=== PATIENT | female | born 1950 | race Caucasian/White ===

== ENCOUNTER 2018-09-17 00:59 | Inpatient (IN) ==
[2018-09-17] MEDS ORDERED: CEFEPIME 2,000 MG in SODIUM CHLORIDE 0.9% 100 ML IV STA (01:30)
[2018-09-17 01:31] LABS: Basophils % 0.2 % (0.0-0.8); Eosinophils % 0.1 % (0.00-10.9); Hematocrit 31.3 VOL% (35.7-47.0); Hemoglobin 9.9 GM/DL (12.0-16.0); Immature Granulocytes % 0.6 %; Immature Granulocytes Absolute 0.07 #; Lymphocytes # 1.2 10*3/uL (1.4-4.0); Lymphocytes % 10.9 % (21.3-54.2); Mean Corpuscular HGB Conc 31.6 GM/DL (32-36); Mean Corpuscular Hemoglobin 30 PG (27-34); Mean Corpuscular Volume 93.2 FL (87-102); Mean Platelet Volume 10.1 FL (9.6-12.0); Monocytes # 0.6 10*3/uL (0.11-0.8); Monocytes % 5.6 % (1.7-12.7); Neutrophils # 9.4 10*3/uL (1.4-7.4); Neutrophils % 82.6 % (38.7-73.9); Platelet Count 204 T/CUMM (130-400); Red Blood Count 3.36 MC/CUMM (3.8-5.5); Red Cell Distribution Width 14.5 % (9.3-17.3); White Blood Count 11.4 T/CUMM (4-12)
[2018-09-17] MEDS ORDERED: VANCOMYCIN INJ 1,000 MG in SODIUM CHLORIDE 0.9% 250 ML IV STA (01:32)
[2018-09-17 01:33] LABS: PT Patient Result 10.6 SECS; Partial Thromboplastin Time 27.3 SECS (0-40)
[2018-09-17 01:49] LABS: Albumin 2.9 G/DL (3.4-5.0); Bilirubin,Total 0.8 MG/DL (0.2-1.0); Calcium 8.4 MG/DL (8.5-10.1); Potassium 3.8 MMOL/L (3.5-5.1); Total Protein 6.3 G/DL (6.4-8.3)
[2018-09-17 01:51] LABS: Lactic Acid 0.9 MMOL/L (0.4-2.0)
[2018-09-17] MEDS ORDERED: ALBUTEROL 2.5 MG/3 ML NEB RESP TX PRN (02:01)
[2018-09-17] MEDS ORDERED: DEXTROSE 50% 25 GM/50 ML VIAL IV PRN ×2 (02:01→11:42)
[2018-09-17] MEDS ORDERED: GLUCAGON 1 MG VIAL IM PRN ×2 (02:01→11:42)
[2018-09-17 02:04] LABS: CKMB % 14.5 %
[2018-09-17 02:05] LABS: Troponin I 5.56 NG/ML (0.00-0.045)
[2018-09-17] MEDS ORDERED: ENOXAPARIN 120 MG/0.8 ML SYRINGE SUBCUT SCH ×2 (03:00→08:30)
[2018-09-17 03:37] LABS: Apearance,Urine CLOUDY (Clear); Bacteria,Urine Occasional /HPF (Few); Bilirubin,Urine Negative (Negative); Blood, Urine Small mg/dL (Negative); Glucose,Urine (UA) Negative (Negative); Hyaline Casts,Urine 10 /LPF (0-3); Ketones,Urine Negative (Negative); Nitrite,Urine Negative (Negative); Protein,Urine Negative; RBC,Urine 1 /HPF (0-4); Squamous Epithelial Cell,Urine Occasional /HPF (0-10); Urine Color Yellow (Yellow); Urine Specific Gravity 1.009 (1.001-1.035); WBC,Urine 6 /HPF (0-6)
[2018-09-17] MEDS: methylPREDNISolone SOD SUC 40 MG/1 ML VIAL IV SCH ×3 (03:46→18:25)
[2018-09-17] MEDS: NITROGLYCERIN 2% OINT 1 INCH/GM PACK TOP SCH ×3 (05:41→18:25)
[2018-09-17] MEDS: ALBUTEROL/IPRATROPIUM 3 ML NEB RESP TX SCH ×3 (07:32→19:11)
[2018-09-17] MEDS ORDERED: NITROGLYCERIN SL 0.4 MG TABLET SL ONE (07:55)
[2018-09-17] MEDS ORDERED: LEVOFLOXACIN INJ 500 MG in PREMIX 1 EACH IV ONE (08:00)
[2018-09-17] MEDS ORDERED: MORPHINE 4 MG/1 ML VIAL ONE (08:14)
[2018-09-17] MEDS ORDERED: MORPHINE 4 MG/1 ML VIAL IV ONE (08:15)
[2018-09-17] MEDS ORDERED: ASPIRIN EC 325 MG TABLET PO SCH (08:30)
[2018-09-17] MEDS ORDERED: POTASSIUM CHLORIDE RIDER 10 MEQ in PREMIX 1 EACH IV PRN (08:32)
[2018-09-17] MEDS ORDERED: diphenhydrAMINE CAP 25 MG CAPSULE PO ONE (08:32)
[2018-09-17] MEDS ORDERED: MAGNESIUM SULF RIDER 2 GM in PREMIX 1 EACH IV PRN (08:32)
[2018-09-17] MEDS ORDERED: DIAZEPAM 5 MG TABLET PO ONE (08:32)
[2018-09-17] MEDS: INSULIN REGULAR 100 UNIT/ML SUBCUT SCH ×4 (08:40→20:58)
[2018-09-17] MEDS ORDERED: SODIUM CHLORIDE 0.9% 1,000 ML IV SCH (09:00)
[2018-09-17] MEDS ORDERED: MIDAZOLAM 2 MG/2 ML VIAL ONE (09:06)
[2018-09-17] MEDS ORDERED: fentaNYL 100 MCG/2 ML VIAL ONE (09:06)
[2018-09-17] MEDS ORDERED: HEPARIN 5,000 UNIT/1 ML VIAL ONE (09:06)
[2018-09-17] MEDS ORDERED: TIROFIBAN 5,000 MCG/100 ML PREMIX IV ONE (09:46)
[2018-09-17] MEDS ORDERED: ASPIRIN EC 325 MG TABLET PO ONE (09:57)
[2018-09-17] MEDS ORDERED: CLOPIDOGREL 300 MG TABLET ONE (10:28)
[2018-09-17] MEDS: TIROFIBAN 5,000 MCG/100 ML PREMIX IV SCH ×2 (11:24→13:16)
[2018-09-17] MEDS: FLUTICASONE/SALMETEROL 500-50 DISKUS 14 DOSE INH SCH ×2 (11:30→20:34)
[2018-09-17] MEDS: AMIODARONE 200 MG TABLET PO SCH (11:31)
[2018-09-17] MEDS: ATORVASTATIN 40 MG TABLET PO SCH (11:31)
[2018-09-17] MEDS: CLOPIDOGREL 75 MG TABLET PO SCH (11:31)
[2018-09-17] MEDS: amLODIPine 5 MG TABLET PO SCH (11:32)
[2018-09-17] MEDS: PANTOPRAZOLE 40 MG TABLET PO SCH (11:32)
[2018-09-17] MEDS: FUROSEMIDE 40 MG TABLET PO SCH ×2 (11:32→20:29)
[2018-09-17] MEDS: LOSARTAN 50 MG TABLET PO SCH (11:32)
[2018-09-17] MEDS: SODIUM CHLORIDE 0.9% 1,000 ML IV SCH ×2 (11:33→20:32)
[2018-09-17] MEDS: traMADol 50 MG TABLET PO PRN ×2 (11:47→21:04)
[2018-09-17 12:29] LABS: CKMB % 18.6 %
[2018-09-17 12:34] LABS: Troponin I 20.9 NG/ML (0.00-0.045)
[2018-09-17] MEDS: GABAPENTIN 300 MG CAPSULE PO SCH ×2 (13:14→20:31)
[2018-09-17] MEDS ORDERED: NITROGLYCERIN SL 0.4 MG TABLET SL PRN (16:22)
[2018-09-17] MEDS ORDERED: HYOSCYAMINE 0.125 MG TABLET PO PRN (16:22)
[2018-09-17 19:45] LABS: CKMB % 19.8 %
[2018-09-17 19:47] LABS: Troponin I 12.3 NG/ML (0.00-0.045)
[2018-09-17] MEDS: traZODone 50 MG TABLET PO SCH (20:30)
[2018-09-17] MEDS ORDERED: GABAPENTIN 100 MG CAPSULE PO SCH (21:00)
[2018-09-18] MEDS: NITROGLYCERIN 2% OINT 1 INCH/GM PACK TOP SCH ×4 (00:02→17:18)
[2018-09-18] MEDS: ALBUTEROL/IPRATROPIUM 3 ML NEB RESP TX SCH ×4 (00:25→20:21)
[2018-09-18] MEDS: methylPREDNISolone SOD SUC 40 MG/1 ML VIAL IV SCH ×2 (03:07→13:20)
[2018-09-18] MEDS: traMADol 50 MG TABLET PO PRN ×2 (03:08→20:49)
[2018-09-18] MEDS: LEVOTHYROXINE 150 MCG TABLET PO SCH (06:03)
[2018-09-18 06:11] LABS: Basophils % 0.1 % (0.0-0.8); Hematocrit 27.7 VOL% (35.7-47.0); Hemoglobin 8.7 GM/DL (12.0-16.0); Immature Granulocytes % 0.5 %; Immature Granulocytes Absolute 0.05 #; Lymphocytes # 1.9 10*3/uL (1.4-4.0); Lymphocytes % 17.6 % (21.3-54.2); Mean Corpuscular HGB Conc 31.4 GM/DL (32-36); Mean Corpuscular Hemoglobin 29 PG (27-34); Mean Corpuscular Volume 93.3 FL (87-102); Mean Platelet Volume 10.5 FL (9.6-12.0); Monocytes # 0.3 10*3/uL (0.11-0.8); Monocytes % 2.8 % (1.7-12.7); Neutrophils # 8.5 10*3/uL (1.4-7.4); Platelet Count 224 T/CUMM (130-400); Red Blood Count 2.97 MC/CUMM (3.8-5.5); Red Cell Distribution Width 14.5 % (9.3-17.3); White Blood Count 10.8 T/CUMM (4-12)
[2018-09-18 06:34] LABS: Albumin 2.7 G/DL (3.4-5.0); Bilirubin,Total 0.8 MG/DL (0.2-1.0); Calcium 8.6 MG/DL (8.5-10.1); Osmolality,Calculated 296.7 MOS/KG (273-304); Potassium 4.5 MMOL/L (3.5-5.1); Total Protein 6.3 G/DL (6.4-8.3)
[2018-09-18 06:38] LABS: CKMB % 22.6 %; Troponin I 10.2 NG/ML (0.00-0.045)
[2018-09-18] MEDS: GABAPENTIN 300 MG CAPSULE PO SCH (09:05)
[2018-09-18] MEDS: INSULIN REGULAR 100 UNIT/ML SUBCUT SCH ×4 (09:05→20:51)
[2018-09-18] MEDS: CLOPIDOGREL 75 MG TABLET PO SCH (09:05)
[2018-09-18] MEDS: FUROSEMIDE 40 MG TABLET PO SCH (09:05)
[2018-09-18] MEDS: AMIODARONE 200 MG TABLET PO SCH (09:06)
[2018-09-18] MEDS: amLODIPine 5 MG TABLET PO SCH (09:06)
[2018-09-18] MEDS: SOLIFENACIN 5 MG TABLET PO SCH (09:06)
[2018-09-18] MEDS: ATORVASTATIN 40 MG TABLET PO SCH (09:06)
[2018-09-18] MEDS: PANTOPRAZOLE 40 MG TABLET PO SCH (09:06)
[2018-09-18] MEDS: LOSARTAN 50 MG TABLET PO SCH (09:06)
[2018-09-18] MEDS: ASPIRIN EC 81 MG TABLET PO SCH (09:07)
[2018-09-18] MEDS: FLUTICASONE/SALMETEROL 500-50 DISKUS 14 DOSE INH SCH ×2 (09:07→20:47)
[2018-09-18] MEDS: LEVOFLOXACIN INJ 250 MG in PREMIX 1 EACH IV SCH (09:10)
[2018-09-18] MEDS: PSYLLIUM POWDER 3.7 GM/PACK PO SCH (10:12)
[2018-09-18] MEDS: POLYETHYLENE GLYCOL POWDER 17 GM PACK PO SCH ×2 (10:12→20:50)
[2018-09-18] MEDS ORDERED: FUROSEMIDE 40 MG/4 ML VIAL IV ONE (15:40)
[2018-09-18] MEDS ORDERED: FUROSEMIDE 40 MG/4 ML VIAL IV SCH (16:00)
[2018-09-18] MEDS: DOCUSATE SODIUM 100 MG CAPSULE PO SCH (20:48)
[2018-09-18] MEDS: LACTULOSE 20 GM/30 ML UDCUP PO SCH (20:48)
[2018-09-18] MEDS: LUBIPROSTONE 24 MCG CAPSULE PO SCH (20:48)
[2018-09-18] MEDS: traZODone 50 MG TABLET PO SCH (20:49)
[2018-09-18] MEDS: FUROSEMIDE 40 MG/4 ML VIAL IV SCH (20:50)
[2018-09-18] MEDS: SENNA 8.6 MG TABLET PO SCH (20:52)
[2018-09-19] MEDS: NITROGLYCERIN 2% OINT 1 INCH/GM PACK TOP SCH ×3 (00:22→13:06)
[2018-09-19] MEDS: ALBUTEROL/IPRATROPIUM 3 ML NEB RESP TX SCH ×4 (01:00→19:37)
[2018-09-19 05:56] LABS: Basophils % 0.1 % (0.0-0.8); Hematocrit 27.2 VOL% (35.7-47.0); Hemoglobin 8.3 GM/DL (12.0-16.0); Immature Granulocytes Absolute 0.13 #; Lymphocytes # 2.3 10*3/uL (1.4-4.0); Lymphocytes % 17.7 % (21.3-54.2); Mean Corpuscular HGB Conc 30.5 GM/DL (32-36); Mean Corpuscular Hemoglobin 28 PG (27-34); Mean Corpuscular Volume 93.2 FL (87-102); Mean Platelet Volume 10.4 FL (9.6-12.0); Monocytes # 0.4 10*3/uL (0.11-0.8); Monocytes % 3.4 % (1.7-12.7); Neutrophils # 10.2 10*3/uL (1.4-7.4); Neutrophils % 77.8 % (38.7-73.9); Platelet Count 245 T/CUMM (130-400); Red Blood Count 2.92 MC/CUMM (3.8-5.5); Red Cell Distribution Width 14.5 % (9.3-17.3); White Blood Count 13.1 T/CUMM (4-12)
[2018-09-19] MEDS: LEVOTHYROXINE 150 MCG TABLET PO SCH (06:08)
[2018-09-19 06:28] LABS: % Iron Saturation 7.7 % (18-50); Ferritin 159.6 ng/ml (8-252)
[2018-09-19 06:34] LABS: Folate 16.7 NG/ML (5.4-24.0); Vitamin B12 475 PG/ML (211-911)
[2018-09-19 07:08] LABS: Sedimentation Rate-Westergren 101 MM/HR (0-30)
[2018-09-19 07:18] LABS: Free T4 (Free Thyroxine) 1.15 NG/DL (0.76-1.46); Thyroid Stimulating Hormone 0.029 uIU/ml (0.358-3.74)
[2018-09-19] MEDS: POLYETHYLENE GLYCOL POWDER 17 GM PACK PO SCH ×3 (08:16→21:08)
[2018-09-19] MEDS ORDERED: predniSONE 20 MG TABLET PO SCH (09:00)
[2018-09-19] MEDS: LACTULOSE 20 GM/30 ML UDCUP PO SCH ×3 (09:08→21:09)
[2018-09-19] MEDS: INSULIN REGULAR 100 UNIT/ML SUBCUT SCH ×4 (09:08→21:09)
[2018-09-19] MEDS: PSYLLIUM POWDER 3.7 GM/PACK PO SCH (09:09)
[2018-09-19] MEDS: amLODIPine 5 MG TABLET PO SCH (09:10)
[2018-09-19] MEDS: FUROSEMIDE 40 MG/4 ML VIAL IV SCH (09:10)
[2018-09-19] MEDS: ATORVASTATIN 40 MG TABLET PO SCH (09:11)
[2018-09-19] MEDS: PANTOPRAZOLE 40 MG TABLET PO SCH (09:11)
[2018-09-19] MEDS: LUBIPROSTONE 24 MCG CAPSULE PO SCH ×2 (09:11→21:09)
[2018-09-19] MEDS: SOLIFENACIN 5 MG TABLET PO SCH (09:11)
[2018-09-19] MEDS: CLOPIDOGREL 75 MG TABLET PO SCH (09:11)
[2018-09-19] MEDS: DOCUSATE SODIUM 100 MG CAPSULE PO SCH ×2 (09:11→21:09)
[2018-09-19] MEDS: ASPIRIN EC 81 MG TABLET PO SCH (09:11)
[2018-09-19] MEDS: FLUTICASONE/SALMETEROL 500-50 DISKUS 14 DOSE INH SCH ×2 (09:11→21:16)
[2018-09-19] MEDS: AMIODARONE 200 MG TABLET PO SCH (09:11)
[2018-09-19] MEDS: LEVOFLOXACIN INJ 250 MG in PREMIX 1 EACH IV SCH (09:12)
[2018-09-19] MEDS ORDERED: IRON SUCROSE 200 MG in SODIUM CHLORIDE 0.9% 100 ML IV ONE (11:00)
[2018-09-19 11:47] LABS: Calcium 8.5 MG/DL (8.5-10.1); Osmolality,Calculated 297.1 MOS/KG (273-304); Potassium 4.2 MMOL/L (3.5-5.1)
[2018-09-19] MEDS ORDERED: MEROPENEM 500 MG in SYRINGE 1 EACH IV SCH (12:30)
[2018-09-19] MEDS: ENOXAPARIN 30 MG/0.3 ML SYRINGE SUBCUT SCH (13:07)
[2018-09-19] MEDS: BUDESONIDE 0.5 MG/2 ML NEB RESP TX SCH ×2 (13:38→19:37)
[2018-09-19] MEDS ORDERED: MAGNESIUM CITRATE 300 ML BOTTLE PO ONE (15:30)
[2018-09-19] MEDS ORDERED: SODIUM CHLORIDE 0.9% 1,000 ML IV SCH (15:30)
[2018-09-19] MEDS ORDERED: MINERAL OIL 30 ML UDCUP PO ONE (15:32)
[2018-09-19] MEDS: traZODone 50 MG TABLET PO SCH (21:09)
[2018-09-19] MEDS: SENNA 8.6 MG TABLET PO SCH (21:09)
[2018-09-19] MEDS: MONTELUKAST 10 MG TABLET PO SCH (21:18)
[2018-09-20] MEDS: ALBUTEROL/IPRATROPIUM 3 ML NEB RESP TX SCH ×6 (00:26→18:59)
[2018-09-20] MEDS: MEROPENEM 500 MG in SYRINGE 1 EACH IV SCH ×2 (01:36→14:07)
[2018-09-20 05:28] LABS: Calcium 8.2 MG/DL (8.5-10.1); Osmolality,Calculated 295.4 MOS/KG (273-304); Potassium 4.6 MMOL/L (3.5-5.1)
[2018-09-20] MEDS: LEVOTHYROXINE 150 MCG TABLET PO SCH (06:11)
[2018-09-20] MEDS: BUDESONIDE 0.5 MG/2 ML NEB RESP TX SCH ×2 (06:52→18:59)
[2018-09-20 09:38] LABS: Hemoglobin A1 (Alkaline) 98.3 % (96.5-98.5); Hemoglobin A2 (Alkaline) 1.7 % (1.5-3.5)
[2018-09-20] MEDS: INSULIN REGULAR 100 UNIT/ML SUBCUT SCH ×4 (10:08→22:15)
[2018-09-20] MEDS: FLUTICASONE/SALMETEROL 500-50 DISKUS 14 DOSE INH SCH ×2 (10:09→21:36)
[2018-09-20] MEDS: ASPIRIN EC 81 MG TABLET PO SCH (10:09)
[2018-09-20] MEDS: LUBIPROSTONE 24 MCG CAPSULE PO SCH (10:09)
[2018-09-20] MEDS: LACTULOSE 20 GM/30 ML UDCUP PO SCH ×4 (10:09→21:41)
[2018-09-20] MEDS: PSYLLIUM POWDER 3.7 GM/PACK PO SCH (10:10)
[2018-09-20] MEDS: AMIODARONE 200 MG TABLET PO SCH (10:10)
[2018-09-20] MEDS: ATORVASTATIN 40 MG TABLET PO SCH (10:10)
[2018-09-20] MEDS: DOCUSATE SODIUM 100 MG CAPSULE PO SCH ×2 (10:10→21:38)
[2018-09-20] MEDS: POLYETHYLENE GLYCOL POWDER 17 GM PACK PO SCH ×2 (10:10→21:37)
[2018-09-20] MEDS: PANTOPRAZOLE 40 MG TABLET PO SCH (10:10)
[2018-09-20] MEDS: SOLIFENACIN 5 MG TABLET PO SCH (10:11)
[2018-09-20] MEDS: CLOPIDOGREL 75 MG TABLET PO SCH (10:11)
[2018-09-20] MEDS: methylPREDNISolone SOD SUC 40 MG/1 ML VIAL IV SCH ×2 (10:16→21:39)
[2018-09-20] MEDS: METOCLOPRAMIDE 10 MG/2 ML VIAL IV SCH ×3 (10:25→21:39)
[2018-09-20] MEDS: LEVOFLOXACIN INJ 250 MG in PREMIX 1 EACH IV SCH (11:15)
[2018-09-20] MEDS: ENOXAPARIN 30 MG/0.3 ML SYRINGE SUBCUT SCH (13:19)
[2018-09-20 13:36] LABS: Apearance,Urine Slightly Hazy (Clear); Bilirubin,Urine Negative (Negative); Blood, Urine Negative (Negative); Glucose,Urine (UA) Negative (Negative); Hyaline Casts,Urine 3 /LPF (0-3); Ketones,Urine Negative (Negative); Nitrite,Urine Negative (Negative); Protein,Urine Negative; RBC,Urine 1 /HPF (0-4); Urine Color Yellow (Yellow); Urine Specific Gravity 1.016 (1.001-1.035); Urine Urobilinogen < 2.0 EU/DL (0.2-1.0); WBC,Urine 2 /HPF (0-6)
[2018-09-20] MEDS: SENNA 8.6 MG TABLET PO SCH (21:38)
[2018-09-20] MEDS: MONTELUKAST 10 MG TABLET PO SCH (21:38)
[2018-09-20] MEDS: traZODone 50 MG TABLET PO SCH (22:10)
[2018-09-21] MEDS: ALBUTEROL/IPRATROPIUM 3 ML NEB RESP TX SCH ×7 (00:06→22:58)
[2018-09-21] MEDS: MEROPENEM 500 MG in SYRINGE 1 EACH IV SCH ×2 (01:30→14:30)
[2018-09-21] MEDS: LACTULOSE 20 GM/30 ML UDCUP PO SCH ×6 (02:00→22:01)
[2018-09-21] MEDS: METOCLOPRAMIDE 10 MG/2 ML VIAL IV SCH ×4 (05:00→21:58)
[2018-09-21 05:28] LABS: Calcium 8.3 MG/DL (8.5-10.1); Osmolality,Calculated 294.9 MOS/KG (273-304); Potassium 5.1 MMOL/L (3.5-5.1)
[2018-09-21] MEDS: LEVOTHYROXINE 150 MCG TABLET PO SCH (06:10)
[2018-09-21] MEDS: BUDESONIDE 0.5 MG/2 ML NEB RESP TX SCH ×2 (07:24→19:03)
[2018-09-21] MEDS: INSULIN REGULAR 100 UNIT/ML SUBCUT SCH ×3 (08:44→16:05)
[2018-09-21] MEDS: methylPREDNISolone SOD SUC 40 MG/1 ML VIAL IV SCH ×2 (08:45→22:03)
[2018-09-21] MEDS: FLUTICASONE/SALMETEROL 500-50 DISKUS 14 DOSE INH SCH ×2 (08:46→22:03)
[2018-09-21] MEDS: LINACLOTIDE 145 MCG CAPSULE PO SCH (08:46)
[2018-09-21] MEDS: CLOPIDOGREL 75 MG TABLET PO SCH (08:46)
[2018-09-21] MEDS: PANTOPRAZOLE 40 MG TABLET PO SCH (08:46)
[2018-09-21] MEDS: DOCUSATE SODIUM 100 MG CAPSULE PO SCH ×2 (08:46→22:02)
[2018-09-21] MEDS: SOLIFENACIN 5 MG TABLET PO SCH (08:47)
[2018-09-21] MEDS: ASPIRIN EC 81 MG TABLET PO SCH (08:47)
[2018-09-21] MEDS: ATORVASTATIN 40 MG TABLET PO SCH (08:47)
[2018-09-21] MEDS: AMIODARONE 200 MG TABLET PO SCH (08:47)
[2018-09-21] MEDS: POLYETHYLENE GLYCOL POWDER 17 GM PACK PO SCH ×2 (08:48→22:01)
[2018-09-21] MEDS: PSYLLIUM POWDER 3.7 GM/PACK PO SCH (08:48)
[2018-09-21] MEDS ORDERED: SODIUM CHLORIDE 0.9% 100 ML IV ONE (15:08)
[2018-09-21] MEDS: ENOXAPARIN 30 MG/0.3 ML SYRINGE SUBCUT SCH (15:10)
[2018-09-21] MEDS: INSULIN NPH/REGULAR 70/30 100 UNIT/ML SUBCUT SCH (16:04)
[2018-09-21] MEDS: miSOPROStol 200 MCG TABLET PO SCH ×2 (17:20→22:02)
[2018-09-21] MEDS: ONDANSETRON 4 MG/2 ML VIAL IV PRN (18:14)
[2018-09-21] MEDS: SENNA 8.6 MG TABLET PO SCH (22:02)
[2018-09-21] MEDS: MONTELUKAST 10 MG TABLET PO SCH (22:02)
[2018-09-21] MEDS: traZODone 50 MG TABLET PO SCH (22:02)
[2018-09-22] MEDS: MEROPENEM 500 MG in SYRINGE 1 EACH IV SCH ×2 (01:00→16:31)
[2018-09-22] MEDS: ALBUTEROL/IPRATROPIUM 3 ML NEB RESP TX SCH ×6 (02:50→23:40)
[2018-09-22] MEDS: INSULIN REGULAR 100 UNIT/ML SUBCUT SCH ×5 (02:53→21:30)
[2018-09-22] MEDS: METOCLOPRAMIDE 10 MG/2 ML VIAL IV SCH ×2 (04:57→21:31)
[2018-09-22] MEDS: LACTULOSE 20 GM/30 ML UDCUP PO SCH ×6 (04:58→21:31)
[2018-09-22 05:42] LABS: Calcium 8.7 MG/DL (8.5-10.1); Osmolality,Calculated 291.1 MOS/KG (273-304); Potassium 5.7 MMOL/L (3.5-5.1)
[2018-09-22] MEDS ORDERED: INSULIN NPH/REGULAR 70/30 100 UNIT/ML SUBCUT SCH (07:30)
[2018-09-22] MEDS: LEVOTHYROXINE 150 MCG TABLET PO SCH (07:40)
[2018-09-22] MEDS ORDERED: FUROSEMIDE INJ 160 MG in SODIUM CHLORIDE 0.9% 50 ML IV ONE (07:55)
[2018-09-22] MEDS: BUDESONIDE 0.5 MG/2 ML NEB RESP TX SCH ×2 (08:10→18:00)
[2018-09-22 08:47] LABS: ABG Base Excess -5.2 MMOL/L (-2.5-2.5); ABG HCO3 19.9 MMOL/L (20-26); ABG Oxygen Saturation 83.3 % (95-100); ABG PCO2 49.5 MM HG (35-48); ABG PH 7.258 (7.35-7.45); ABG PO2 55.8 MM HG (80-95); ABG TCO2 20.6 MMOL/L (23-27)
[2018-09-22] MEDS ORDERED: DOBUTamine 500 MG/250 ML PREMIX IV SCH (10:01)
[2018-09-22 10:26] LABS: Basophils % 0.1 % (0.0-0.8); Hematocrit 32.2 VOL% (35.7-47.0); Hemoglobin 9.6 GM/DL (12.0-16.0); Immature Granulocytes % 3.3 %; Immature Granulocytes Absolute 1.23 #; Lymphocytes # 10.7 10*3/uL (1.4-4.0); Lymphocytes % 28.6 % (21.3-54.2); Mean Corpuscular HGB Conc 29.8 GM/DL (32-36); Mean Corpuscular Hemoglobin 28 PG (27-34); Mean Corpuscular Volume 93.3 FL (87-102); Mean Platelet Volume 10.3 FL (9.6-12.0); Monocytes # 1.2 10*3/uL (0.11-0.8); Monocytes % 3.3 % (1.7-12.7); Neutrophils # 24.2 10*3/uL (1.4-7.4); Neutrophils % 64.7 % (38.7-73.9); Platelet Count 306 T/CUMM (130-400); Red Blood Count 3.45 MC/CUMM (3.8-5.5); Red Cell Distribution Width 14.6 % (9.3-17.3); White Blood Count 37.5 T/CUMM (4-12)
[2018-09-22 10:45] LABS: Hypochromasia 1+; Lymphocytes 29 % (20-55); Ovalocytes Slight; Platelet Estimate Adequate; Segmented Neutrophils 70 % (50-85); Total Cells Counted 100
[2018-09-22] MEDS ORDERED: LEVOFLOXACIN INJ 250 MG in PREMIX 1 EACH IV SCH (11:00)
[2018-09-22] MEDS: LINACLOTIDE 145 MCG CAPSULE PO SCH (13:33)
[2018-09-22] MEDS: ASPIRIN EC 81 MG TABLET PO SCH (13:34)
[2018-09-22] MEDS: miSOPROStol 200 MCG TABLET PO SCH ×3 (13:34→23:05)
[2018-09-22] MEDS: AMIODARONE 200 MG TABLET PO SCH (13:35)
[2018-09-22] MEDS: DOCUSATE SODIUM 100 MG CAPSULE PO SCH ×2 (13:35→21:30)
[2018-09-22] MEDS: ATORVASTATIN 40 MG TABLET PO SCH (13:35)
[2018-09-22] MEDS: ENOXAPARIN 30 MG/0.3 ML SYRINGE SUBCUT SCH (14:31)
[2018-09-22 14:59] LABS: Hepatitis A Ab IgM Quant 0.03 Index; Hepatitis A Ab IgM Result Negative (Negative); Hepatitis B Core IgM Quant 0.14 Index; Hepatitis B Core IgM Result Negative (Negative); Hepatitis B Surface Ag Quant < 0.10 Index; Hepatitis B Surface Ag Result Negative (Negative); Hepatitis C Virus Ab Result Negative (Negative)
[2018-09-22 15:28] LABS: Apearance,Urine CLOUDY (Clear); Bacteria,Urine Occasional /HPF (Few); Bilirubin,Urine Negative (Negative); Blood, Urine Small mg/dL (Negative); Calcium Oxalate Crystals,Urine Occasional /HPF (Few); Glucose,Urine (UA) 50 mg/dL (Negative); Hyaline Casts,Urine 3 /LPF (0-3); Ketones,Urine 5 mg/dL (Negative); Mucus,Urine Occasional /LPF (Occasional); Nitrite,Urine Negative (Negative); Protein,Urine 30 MG/DL; RBC,Urine 4 /HPF (0-4); Squamous Epithelial Cell,Urine Occasional /HPF (0-10); Urine Color Yellow (Yellow); Urine Urobilinogen < 2.0 EU/DL (0.2-1.0); WBC,Urine 14 /HPF (0-6)
[2018-09-22] MEDS: PANTOPRAZOLE 40 MG VIAL IV SCH (16:31)
[2018-09-22] MEDS: INSULIN NPH/REGULAR 70/30 100 UNIT/ML SUBCUT SCH (16:38)
[2018-09-22] MEDS: ONDANSETRON 4 MG/2 ML VIAL IV PRN ×2 (16:54→21:05)
[2018-09-22] MEDS ORDERED: PROMETHAZINE INJ 12.5 MG in SODIUM CHLORIDE 0.9% 50 ML IV PRN (18:20)
[2018-09-22] MEDS: FLUTICASONE/SALMETEROL 500-50 DISKUS 14 DOSE INH SCH ×2 (18:44→21:30)
[2018-09-22] MEDS: CLOPIDOGREL 75 MG TABLET PO SCH (18:44)
[2018-09-22] MEDS: MONTELUKAST 10 MG TABLET PO SCH (21:30)
[2018-09-23] MEDS: MEROPENEM 500 MG in SYRINGE 1 EACH IV SCH ×2 (01:20→13:16)
[2018-09-23] MEDS: LACTULOSE 20 GM/30 ML UDCUP PO SCH ×6 (03:00→21:34)
[2018-09-23] MEDS: ALBUTEROL/IPRATROPIUM 3 ML NEB RESP TX SCH ×6 (03:15→23:20)
[2018-09-23 04:23] LABS: ABG Base Excess 1.4 MMOL/L (-2.5-2.5); ABG HCO3 25.6 MMOL/L (20-26); ABG Oxygen Saturation 96.3 % (95-100); ABG PCO2 41.2 MM HG (35-48); ABG PH 7.411 (7.35-7.45); ABG PO2 85.6 MM HG (80-95); ABG TCO2 23.3 MMOL/L (23-27); Allen Test Positive; Pt O2 Delivery Device BIPAP
[2018-09-23] MEDS: ONDANSETRON 4 MG/2 ML VIAL IV PRN ×3 (04:39→13:42)
[2018-09-23 05:03] LABS: Basophils # 0.1 10*3/uL (0.0-0.2); Basophils % 0.2 % (0.0-0.8); Hematocrit 28.8 VOL% (35.7-47.0); Immature Granulocytes Absolute 0.35 #; Lymphocytes # 3.9 10*3/uL (1.4-4.0); Mean Corpuscular HGB Conc 31.3 GM/DL (32-36); Mean Corpuscular Hemoglobin 28 PG (27-34); Mean Corpuscular Volume 90.9 FL (87-102); Mean Platelet Volume 10.6 FL (9.6-12.0); Monocytes # 0.6 10*3/uL (0.11-0.8); Monocytes % 1.7 % (1.7-12.7); NRBC # 0.02 10*3/uL; Neutrophils # 30.5 10*3/uL (1.4-7.4); Neutrophils % 86.1 % (38.7-73.9); Platelet Count 269 T/CUMM (130-400); Red Blood Count 3.17 MC/CUMM (3.8-5.5); Red Cell Distribution Width 14.6 % (9.3-17.3); White Blood Count 35.3 T/CUMM (4-12)
[2018-09-23 05:40] LABS: Calcium 8.5 MG/DL (8.5-10.1); Osmolality,Calculated 292.1 MOS/KG (273-304); Potassium 4.7 MMOL/L (3.5-5.1)
[2018-09-23 05:52] LABS: Albumin 2.4 G/DL (3.4-5.0); Calcium 8.8 MG/DL (8.5-10.1); Osmolality,Calculated 292.1 MOS/KG (273-304); Potassium 4.7 MMOL/L (3.5-5.1)
[2018-09-23] MEDS: METOCLOPRAMIDE 10 MG/2 ML VIAL IV SCH ×3 (06:20→21:25)
[2018-09-23] MEDS: LEVOTHYROXINE 100 MCG TABLET PO SCH (06:33)
[2018-09-23 07:03] LABS: Band Neutrophils 2 % (0-10); Lymphocytes 15 % (20-55); Segmented Neutrophils 83 % (50-85); Total Cells Counted 100
[2018-09-23 07:04] LABS: Acanthocytes Few; Hypochromasia 1+; Microcytosis Slight; Ovalocytes Few
[2018-09-23] MEDS: BUDESONIDE 0.5 MG/2 ML NEB RESP TX SCH ×2 (07:18→19:07)
[2018-09-23] MEDS: INSULIN NPH/REGULAR 70/30 100 UNIT/ML SUBCUT SCH ×2 (08:59→17:21)
[2018-09-23] MEDS: LINACLOTIDE 145 MCG CAPSULE PO SCH (09:00)
[2018-09-23] MEDS: INSULIN REGULAR 100 UNIT/ML SUBCUT SCH ×4 (09:00→21:11)
[2018-09-23] MEDS: miSOPROStol 200 MCG TABLET PO SCH ×4 (13:02→21:33)
[2018-09-23] MEDS: PANTOPRAZOLE 40 MG VIAL IV SCH (13:17)
[2018-09-23] MEDS: ENOXAPARIN 30 MG/0.3 ML SYRINGE SUBCUT SCH (13:17)
[2018-09-23] MEDS: MORPHINE 4 MG/1 ML VIAL IV PRN ×2 (13:42→20:46)
[2018-09-23] MEDS: DOCUSATE SODIUM 100 MG CAPSULE PO SCH ×2 (13:43→21:33)
[2018-09-23] MEDS: ASPIRIN EC 81 MG TABLET PO SCH (13:43)
[2018-09-23] MEDS: predniSONE 20 MG TABLET PO SCH (13:44)
[2018-09-23] MEDS: AMIODARONE 200 MG TABLET PO SCH (13:44)
[2018-09-23] MEDS: ATORVASTATIN 40 MG TABLET PO SCH (13:44)
[2018-09-23] MEDS: CLOPIDOGREL 75 MG TABLET PO SCH (13:44)
[2018-09-23] MEDS: LORazepam 2 MG/1 ML VIAL IV PRN ×2 (14:38→21:02)
[2018-09-23] MEDS: FLUTICASONE/SALMETEROL 500-50 DISKUS 14 DOSE INH SCH ×2 (15:37→21:48)
[2018-09-23] MEDS: MONTELUKAST 10 MG TABLET PO SCH (21:34)
[2018-09-24] MEDS: MEROPENEM 500 MG in SYRINGE 1 EACH IV SCH ×2 (00:11→12:45)
[2018-09-24] MEDS: LACTULOSE 20 GM/30 ML UDCUP PO SCH ×6 (01:33→21:20)
[2018-09-24] MEDS: ALBUTEROL/IPRATROPIUM 3 ML NEB RESP TX SCH ×6 (03:02→23:11)
[2018-09-24] MEDS: MORPHINE 4 MG/1 ML VIAL IV PRN ×3 (03:16→22:43)
[2018-09-24 04:56] LABS: Basophils # 0.1 10*3/uL (0.0-0.2); Basophils % 0.1 % (0.0-0.8); Hematocrit 27.7 VOL% (35.7-47.0); Hemoglobin 8.6 GM/DL (12.0-16.0); Immature Granulocytes % 1.6 %; Immature Granulocytes Absolute 0.53 #; Lymphocytes # 5.1 10*3/uL (1.4-4.0); Lymphocytes % 15.1 % (21.3-54.2); Mean Corpuscular Hemoglobin 28 PG (27-34); Mean Corpuscular Volume 91.1 FL (87-102); Mean Platelet Volume 10.4 FL (9.6-12.0); Monocytes # 0.3 10*3/uL (0.11-0.8); Monocytes % 0.9 % (1.7-12.7); NRBC # 0.02 10*3/uL; Neutrophils # 27.7 10*3/uL (1.4-7.4); Neutrophils % 82.3 % (38.7-73.9); Platelet Count 224 T/CUMM (130-400); Red Blood Count 3.04 MC/CUMM (3.8-5.5); White Blood Count 33.6 T/CUMM (4-12)
[2018-09-24 05:21] LABS: Calcium 8.8 MG/DL (8.5-10.1); Osmolality,Calculated 311.7 MOS/KG (273-304); Potassium 4.9 MMOL/L (3.5-5.1)
[2018-09-24 05:28] LABS: Lymphocytes 19 % (20-55); Platelet Estimate Normal; Polychromasia Few; Segmented Neutrophils 81 % (50-85); Total Cells Counted 100
[2018-09-24] MEDS: METOCLOPRAMIDE 10 MG/2 ML VIAL IV SCH ×4 (05:42→22:07)
[2018-09-24] MEDS: PANTOPRAZOLE 40 MG TABLET PO SCH (06:42)
[2018-09-24] MEDS: POLYETHYLENE GLYCOL POWDER 17 GM PACK PO SCH (06:42)
[2018-09-24] MEDS: PSYLLIUM POWDER 3.7 GM/PACK PO SCH (06:42)
[2018-09-24] MEDS: methylPREDNISolone SOD SUC 40 MG/1 ML VIAL IV SCH (06:42)
[2018-09-24] MEDS: SOLIFENACIN 5 MG TABLET PO SCH (06:43)
[2018-09-24] MEDS: BUDESONIDE 0.5 MG/2 ML NEB RESP TX SCH ×2 (07:08→18:52)
[2018-09-24] MEDS: LORazepam 2 MG/1 ML VIAL IV PRN ×3 (07:59→15:01)
[2018-09-24] MEDS: LEVOTHYROXINE 100 MCG TABLET PO SCH (08:20)
[2018-09-24] MEDS: INSULIN NPH/REGULAR 70/30 100 UNIT/ML SUBCUT SCH ×2 (08:20→16:25)
[2018-09-24] MEDS ORDERED: ERGOCALCIFEROL 50,000 UNIT CAPSULE PO SCH (09:00)
[2018-09-24] MEDS: ONDANSETRON 4 MG/2 ML VIAL IV PRN (09:27)
[2018-09-24] MEDS: INSULIN REGULAR 100 UNIT/ML SUBCUT SCH ×4 (09:27→21:20)
[2018-09-24] MEDS: ASPIRIN EC 81 MG TABLET PO SCH (09:32)
[2018-09-24] MEDS: LINACLOTIDE 145 MCG CAPSULE PO SCH (09:32)
[2018-09-24] MEDS: miSOPROStol 200 MCG TABLET PO SCH ×4 (09:32→21:20)
[2018-09-24] MEDS: DOCUSATE SODIUM 100 MG CAPSULE PO SCH ×2 (09:33→22:05)
[2018-09-24] MEDS: AMIODARONE 200 MG TABLET PO SCH ×2 (09:33→17:30)
[2018-09-24] MEDS: predniSONE 20 MG TABLET PO SCH ×2 (09:33→17:30)
[2018-09-24] MEDS: CLOPIDOGREL 75 MG TABLET PO SCH (09:33)
[2018-09-24] MEDS: ATORVASTATIN 40 MG TABLET PO SCH ×2 (09:33→17:30)
[2018-09-24] MEDS: FLUTICASONE/SALMETEROL 500-50 DISKUS 14 DOSE INH SCH ×2 (09:35→22:05)
[2018-09-24] MEDS: PANTOPRAZOLE 40 MG VIAL IV SCH (09:47)
[2018-09-24] MEDS: ENOXAPARIN 30 MG/0.3 ML SYRINGE SUBCUT SCH (12:21)
[2018-09-24] MEDS ORDERED: HEPARIN 10,000 UNIT/10 ML VIAL IV SCH (13:00)
[2018-09-24] MEDS ORDERED: CLOPIDOGREL 300 MG TABLET PO ONE (13:24)
[2018-09-24] MEDS ORDERED: ASPIRIN CHEW 81 MG TABLET PO ONE (13:24)
[2018-09-24] MEDS ORDERED: ASPIRIN EC 325 MG TABLET PO ONE (13:58)
[2018-09-24] MEDS: MONTELUKAST 10 MG TABLET PO SCH (21:20)
[2018-09-25] MEDS: ALBUTEROL/IPRATROPIUM 3 ML NEB RESP TX SCH ×6 (02:44→22:37)
[2018-09-25] MEDS: MEROPENEM 500 MG in SYRINGE 1 EACH IV SCH ×2 (02:50→13:47)
[2018-09-25] MEDS: LACTULOSE 20 GM/30 ML UDCUP PO SCH ×6 (04:13→21:53)
[2018-09-25 04:32] LABS: Basophils # 0.1 10*3/uL (0.0-0.2); Basophils % 0.2 % (0.0-0.8); Hematocrit 28.7 VOL% (35.7-47.0); Hemoglobin 8.7 GM/DL (12.0-16.0); Immature Granulocytes % 1.7 %; Lymphocytes # 4.9 10*3/uL (1.4-4.0); Lymphocytes % 16.1 % (21.3-54.2); Mean Corpuscular HGB Conc 30.3 GM/DL (32-36); Mean Corpuscular Hemoglobin 28 PG (27-34); Mean Corpuscular Volume 92.3 FL (87-102); Mean Platelet Volume 10.2 FL (9.6-12.0); Monocytes # 0.3 10*3/uL (0.11-0.8); Neutrophils # 24.4 10*3/uL (1.4-7.4); Platelet Count 148 T/CUMM (130-400); Red Blood Count 3.11 MC/CUMM (3.8-5.5); Red Cell Distribution Width 15.3 % (9.3-17.3); White Blood Count 30.1 T/CUMM (4-12)
[2018-09-25 04:52] LABS: Calcium 8.7 MG/DL (8.5-10.1); Osmolality,Calculated 305.7 MOS/KG (273-304); Potassium 4.8 MMOL/L (3.5-5.1)
[2018-09-25 05:24] LABS: Microcytosis Slight; Ovalocytes Few
[2018-09-25 05:25] LABS: Hypochromasia 1+; Platelet Estimate Adequate
[2018-09-25] MEDS: METOCLOPRAMIDE 10 MG/2 ML VIAL IV SCH ×3 (06:23→21:53)
[2018-09-25] MEDS: LEVOTHYROXINE 100 MCG TABLET PO SCH (06:24)
[2018-09-25] MEDS: MORPHINE 4 MG/1 ML VIAL IV PRN ×4 (07:00→22:15)
[2018-09-25] MEDS: BUDESONIDE 0.5 MG/2 ML NEB RESP TX SCH ×2 (07:30→19:14)
[2018-09-25] MEDS: INSULIN REGULAR 100 UNIT/ML SUBCUT SCH ×4 (07:57→21:53)
[2018-09-25] MEDS: INSULIN NPH/REGULAR 70/30 100 UNIT/ML SUBCUT SCH ×2 (07:57→16:50)
[2018-09-25] MEDS ORDERED: hydrALAZINE 20 MG/1 ML VIAL IV PRN (08:18)
[2018-09-25] MEDS: PANTOPRAZOLE 40 MG VIAL IV SCH (09:09)
[2018-09-25] MEDS: LINACLOTIDE 145 MCG CAPSULE PO SCH (09:09)
[2018-09-25] MEDS: predniSONE 20 MG TABLET PO SCH (09:12)
[2018-09-25] MEDS: miSOPROStol 200 MCG TABLET PO SCH ×4 (09:12→21:53)
[2018-09-25] MEDS: AMIODARONE 200 MG TABLET PO SCH (09:13)
[2018-09-25] MEDS: ASPIRIN EC 81 MG TABLET PO SCH (09:13)
[2018-09-25] MEDS: DOCUSATE SODIUM 100 MG CAPSULE PO SCH ×2 (09:13→20:53)
[2018-09-25] MEDS: ATORVASTATIN 40 MG TABLET PO SCH (09:13)
[2018-09-25] MEDS: CLOPIDOGREL 75 MG TABLET PO SCH (09:13)
[2018-09-25] MEDS: FLUTICASONE/SALMETEROL 500-50 DISKUS 14 DOSE INH SCH ×2 (09:14→20:53)
[2018-09-25] MEDS: LORazepam 2 MG/1 ML VIAL IV PRN (09:35)
[2018-09-25] MEDS: ENOXAPARIN 30 MG/0.3 ML SYRINGE SUBCUT SCH (12:12)
[2018-09-25] MEDS: ONDANSETRON 4 MG/2 ML VIAL IV PRN ×2 (12:28→18:36)
[2018-09-25] MEDS: MONTELUKAST 10 MG TABLET PO SCH (21:53)
[2018-09-26] MEDS: LACTULOSE 20 GM/30 ML UDCUP PO SCH ×2 (01:17→06:36)
[2018-09-26] MEDS: MEROPENEM 500 MG in SYRINGE 1 EACH IV SCH (01:40)
[2018-09-26] MEDS: ALBUTEROL/IPRATROPIUM 3 ML NEB RESP TX SCH ×2 (02:54→06:41)
[2018-09-26] MEDS: MORPHINE 4 MG/1 ML VIAL IV PRN (05:10)
[2018-09-26 05:11] LABS: Calcium 9.1 MG/DL (8.5-10.1); Osmolality,Calculated 317.5 MOS/KG (273-304)
[2018-09-26 05:25] LABS: Basophils % 0.1 % (0.0-0.8); Hematocrit 31.8 VOL% (35.7-47.0); Hemoglobin 10.2 GM/DL (12.0-16.0); Immature Granulocytes % 2.5 %; Immature Granulocytes Absolute 1.03 #; Lymphocytes % 17.2 % (21.3-54.2); Mean Corpuscular HGB Conc 32.1 GM/DL (32-36); Mean Corpuscular Hemoglobin 30 PG (27-34); Mean Corpuscular Volume 92.2 FL (87-102); Monocytes # 0.6 10*3/uL (0.11-0.8); Monocytes % 1.4 % (1.7-12.7); NRBC # 0.19 10*3/uL; Neutrophils # 32.2 10*3/uL (1.4-7.4); Neutrophils % 78.8 % (38.7-73.9); Red Blood Count 3.45 MC/CUMM (3.8-5.5); Red Cell Distribution Width 15.6 % (9.3-17.3)
[2018-09-26 05:56] LABS: White Blood Count 40.9 T/CUMM (4-12)
[2018-09-26 05:57] LABS: Platelet Count 13 T/CUMM (130-400)
[2018-09-26 06:06] LABS: Acanthocytes Few; Hypochromasia 1+; Lymphocytes 13 % (20-55); Metamyelocytes 1 %; Microcytosis 1+; Nucleated Red Blood Cells 1 (0-5); Ovalocytes Few; Segmented Neutrophils 85 % (50-85); Total Cells Counted 100
[2018-09-26 06:07] LABS: Platelet Estimate Decreased; Polychromasia Slight
[2018-09-26 06:08] VITALS: BP 114/69
[2018-09-26] MEDS: METOCLOPRAMIDE 10 MG/2 ML VIAL IV SCH (06:37)
[2018-09-26] MEDS: LEVOTHYROXINE 100 MCG TABLET PO SCH (06:37)
[2018-09-26] MEDS: BUDESONIDE 0.5 MG/2 ML NEB RESP TX SCH (06:41)
[2018-09-26] MEDS: LORazepam 2 MG/1 ML VIAL IV PRN (07:11)
[2018-09-26] MEDS ORDERED: INFLUENZA VIRUS VACCINE 0.5 ML SYRINGE IM ONE (14:29)
== END 2018-09-26 07:28 | disposition expired | DRG 246 ==
LOC: EDUNIT# → EDBD → N.ED 00:59 → SUATTDRO 01:41 → N.EDINP 01:41 → N.TELES 02:35 → N.ICU 09-22 09:52
PROVIDERS: ADMIT Hospitalist; ATTEND Internal Medicine Nephrology